=== PATIENT | male | born 1985 | race Caucasian/White ===

== ENCOUNTER 2024-05-26 15:02 | Outpatient (REF) | payer OTHER, SELFPAY ==
[2024-06-08 03:59] LABS: Estradiol Free 3.11 pg/mL; Estradiol, Ultrasensitive 194 pg/mL (< OR = 29)
== END 2024-05-26 15:03 | disposition home or self-care (01) ==
LOC: HO.LAB 15:02
PROVIDERS: PCP Registered Nurse; Visit Provider Registered Nurse
DX: F64.0 Transsexualism (principal)
CPT/HCPCS: 36415; 82670; 82681; 84403